=== PATIENT | female | born 1990 | race Caucasian/White ===

== ENCOUNTER → 2017-02-10 | Outpatient (CLI) | payer BC ==
[2017-02-10 15:49] LABS: URINE APPEARANCE CLEAR (CLEAR); URINE BILIRUBIN NEG (NEG); URINE COLOR YELLOW; URINE NITRITE NEG (NEG); URINE SPECIFIC GRAVITY 1.009 (1.000-1.030); UROBILINOGEN NEG (NEG)
[2017-02-10 15:54] LABS: BASO % 0.3 %; BASO ABS # 0.03 K/uL (0-0.2); COMPLETE YES; EOS % 1.6 %; HEMATOCRIT 35.8 % (37-47); IG% 0.3 %; LYMPH % 28.2 %; LYMPH ABS # 3.24 K/uL (1.2-3.4); MEAN CELL VOLUME 87.7 fL (80-100); MEAN CORPUSCULAR HEMOGLOBIN 31.1 pg (25-34); MEAN CORPUSCULAR HGB CONC 35.5 g/dl (32-36); MEAN PLATELET VOLUME 9.5 fL (7.4-10.4); MONO % 6.3 %; NEUT % 63.3 %; PLATELET COUNT 281 K/uL (130-400); RED BLOOD COUNT 4.08 M/uL (4.2-5.4)
[2017-02-10 15:57] LABS: MANUAL MICROSCOPIC REQUIRED? NO; REVIEW REQ? YES
[2017-02-10 16:06] LABS: URINE EPITHELIAL CELL AUTO >30 /lpf (0-5)
[2017-02-13 01:57] LABS: CHLAMYDIA TRACH RNA*** NOT DETECTED (NOT DETECTED); GC (NEIS GONORRHOEAE)RNA** NOT DETECTED (NOT DETECTED)
== END | disposition home or self-care (01) ==
LOC: C.LAB1850 14:52
PROVIDERS: ATTEND Obstetrics & Gynecology
DX: Z34.91 Encounter for supervision of normal pregnancy, unspecified, first trimester (principal)

== ENCOUNTER → 2017-05-28 | Outpatient (CLI) | payer BC ==
[2017-05-28 16:51] LABS: URINE APPEARANCE CLOUDY (CLEAR); URINE BILIRUBIN NEG (NEG); URINE COLOR YELLOW; URINE EPITHELIAL CELL AUTO >30 /lpf (0-5); URINE NITRITE NEG (NEG); URINE PH 7.5 (4.5-7.5); URINE SPECIFIC GRAVITY 1.021 (1.000-1.030); UROBILINOGEN NEG (NEG)
[2017-05-28 16:52] LABS: MANUAL MICROSCOPIC REQUIRED? NO; REVIEW REQ? NO
== END | disposition home or self-care (01) ==
LOC: C.LABSPEC 14:47
PROVIDERS: ATTEND Obstetrics & Gynecology
DX: Z34.83 Encounter for supervision of other normal pregnancy, third trimester (principal)

== ENCOUNTER → 2017-07-26 | Outpatient (CLI) | payer BC, OTHER | END | disposition home or self-care (01) | LOC: C.LABSPEC 12:45 | PROVIDERS: ATTEND Obstetrics & Gynecology | DX: Z34.83 Encounter for supervision of other normal pregnancy, third trimester (principal) ==

== ENCOUNTER 2017-08-24 21:13 | Inpatient (IN) | payer OTHER ==
[~2017-08-24] VITALS: Ht 162.6 cm; Wt 83.6 kg
[2017-08-24] MEDS ORDERED: OXYTOCIN 30 UNITS/500ML NSS IV ONE (21:20)
[2017-08-24] MEDS ORDERED: LACTATED RINGER'S 1000ML 1,000 ML IV PRN (21:33)
[2017-08-24] MEDS ORDERED: LACTATED RINGER'S 1000ML 1,000 ML IV SCH (21:33)
[2017-08-24] MEDS ORDERED: LANOLIN OINT EXT PRN (22:00)
[2017-08-24] MEDS ORDERED: OXYTOCIN 30 UNITS/500ML NSS IV PRN (22:00)
[2017-08-24] MEDS ORDERED: SUPERCREAM 0.870 % 15GM JAR EXT PRN (22:00)
[2017-08-24] MEDS ORDERED: METHYLERGONOVINE MALEATE 0.2 MG/ML AMP IM ONE (22:00)
[2017-08-24] MEDS ORDERED: BENZOCAINE 20% AER SPR 82.5 GM CAN EXT PRN (22:00)
[2017-08-24] MEDS ORDERED: HYDROCORTISONE ACETATE 25 MG SUPP PR PRN (22:00)
[2017-08-24] MEDS ORDERED: OXYCODONE/ACETAMINOPHEN 5-325 TAB PO PRN (22:00)
[2017-08-24] MEDS ORDERED: MISOPROSTOL 200 MCG TAB PR SCH (22:00)
[2017-08-24 22:06] LABS: HEMATOCRIT 35.2 % (37-47); HEMOGLOBIN 11.9 g/dL (12.0-16.0); MEAN CORPUSCULAR HEMOGLOBIN 28.1 pg (25-34); MEAN CORPUSCULAR HGB CONC 33.8 g/dl (32-36); MEAN PLATELET VOLUME 10.5 fL (7.4-10.4); PLATELET COUNT 245 K/uL (130-400); RED CELL DISTRIBUTION WIDTH CV 14.4 % (11.5-14.5); RED CELL DISTRIBUTION WIDTH SD 43.1 fL (36.4-46.3); WHITE BLOOD COUNT 18.52 K/uL (4.8-10.8)
[2017-08-24] MEDS ORDERED: IBUPROFEN 600 MG TAB ONE (22:11)
[2017-08-24] MEDS ORDERED: MISOPROSTOL 200 MCG TAB ONE (22:22)
--- NOTE | 2017-08-24 22:43 | HISTORY & PHYSICAL EXAMINATION ---
DATE OF ADMISSION: 08/24/2017 CHIEF COMPLAINT: Spontaneous labor. HISTORY OF PRESENT ILLNESS: The patient is a 27-year-old G2, P1-0-0-1, at 41 weeks and 0 days, who presented to labor and delivery from the Emergency Department with complaint of "The baby is coming." She was not able to provide much verbal information due to extreme discomfort; however, according to information collected from both her and the attending physiotherapy assistant [place], the patient had been seen at the office today where her cervix was checked and membranes were stripped per the patient and she began charissa at approximately 6:30 p.m. She messaged her physiotherapy assistant at 8:00 p.m. and arrived at labor and delivery unannounced at approximately 9:30 p.m., actively pushing. is complicated by post-dates. PAST MEDICAL HISTORY: Denies. PAST SURGICAL HISTORY: Clyman teeth and tonsils. PAST GYNECOLOGIC HISTORY: Colposcopy in 2012. MEDICATIONS: vitamins. ALLERGIES: PENICILLIN CAUSES RASH. SOCIAL HISTORY: Denies tobacco, alcohol and drug use. FAMILY HISTORY: Unremarkable. REVIEW OF SYSTEMS: Negative except as above. PHYSICAL EXAMINATION: VITAL SIGNS: Blood pressure on arrival was 162/78, heart rate 78; however, I believe this blood pressure was falsely elevated due to active pushing, subsequent blood pressures were in the normal range 115/81, 126/83 and 122/81. Vitals otherwise normal. GENERAL IMPRESSION: Awake, alert and oriented x3, in significant discomfort. ABDOMEN: Gravid and actively charissa. EXTREMITIES: No edema, no calf tenderness. CERVIX: Completely dilated, +3 station, actively pushing with bulging membranes. heart monitor unable to trace baby; however, the small amount of heart tones that we were able to obtain showed heart rate in the 80s upon arrival. LABORATORY DATA: Blood type O positive, rubella immune, group B strep negative. ASSESSMENT: A 27-year-old G2, P1-0-0-1, at 41 weeks 0 days, spontaneous labor. PLAN: Spontaneous vaginal delivery was performed upon arrival. Labs will be collected after delivery. Please see delivery summary for further details of the delivery.
[2017-08-24] MEDS ORDERED: PRENTAB26 PO (22:44)
[2017-08-24 22:46] VITALS: Ht 162.6 cm; Wt 83.6 kg
[2017-08-25] MEDS ORDERED: OXYTOCIN INJ 10 UNITS/ML VIAL IM ONE (00:30)
[2017-08-25 01:30] VITALS: BP 114/76; PULSE 78; TEMP 37.4; O2SAT 97
[2017-08-25 03:10] VITALS: BP 118/81; PULSE 74; TEMP 36.5; O2SAT 97
[2017-08-25] MEDS: IBUPROFEN 600 MG TAB PO PRN ×6 (03:30→22:34)
--- NOTE | 2017-08-25 05:25 | DELIVERY SUMMARY ---
DATE OF OPERATION: 08/24/2017 PREDELIVERY DIAGNOSES: 1. A 27-year-old G2, P1-0-0-1 at 41 weeks 0 days. 2. Spontaneous labor. POSTDELIVERY DIAGNOSES: Same. PROCEDURE: Spontaneous vaginal delivery and repair of second-degree perineal laceration. FINDINGS: Viable female with Apgars 7 and 9, weight pending. Please see nursery records. ESTIMATED BLOOD LOSS: 300 mL. DESCRIPTION OF DELIVERY: The patient arrived in spontaneous labor and was actively pushing upon entering the door of the labor and delivery. She had bulging membrane. Upon getting patient setup in a labor and delivery bed, the membranes were ruptured with Amniohook for clear fluid. The patient then pushed to deliver the head. No nuchal cord was noted. The anterior followed by the posterior shoulder were delivered followed by the body. Baby was placed on mother's abdomen. The cord was doubly clamped and cut. A cord segment was retained for cord gases. Cord blood was obtained. The placenta was then delivered spontaneously intact with a 3-vessel cord. Due to the patient's precipitous delivery, an IV was not able to be started prior to delivery and therefore 10 units of Pitocin IM were injected. The uterus became firm, however, there was still some uterine bleeding and therefore because we still did not have IV access, 1000 mcg of Cytotec were used per rectum to obtain hemostasis. Uterus and vagina were cleared off all clots and debris. The cervix, vagina and perineum were inspected and a second degree perineal laceration was noted. Lidocaine was used to numb the area and this laceration was repaired in standard fashion with 3-0 Vicryl in a running locked stitch. Excellent hemostasis was observed. The patient tolerated the delivery well and mother and baby were recovering in the room in stable and good condition. At the conclusion of the delivery, sponge, instrument and needles counts were correct x2. Prior to the patient beginning to push and due to precipitous nature of delivery, we were unable to trace the rate in a heart tracing strip. We were able to berry picker the heart rate in the 80s. It is unknown how long the baby's heart rate was in the 80s because she delivered within a few minutes of arriving in the labor and delivery unit. I attest to the content of the Intraoperative Record and any orders documented therein. Any exception s are noted below.
[2017-08-25 06:24] LABS: HEMOGLOBIN 10.9 g/dL (12.0-16.0)
[2017-08-25] MEDS: DOCUSATE SODIUM 100 MG CAP PO SCH ×2 (08:00→19:48)
[2017-08-25 09:00] VITALS: BP 117/76; PULSE 77; TEMP 36.8
--- NOTE | 2017-08-25 11:12 | OB/GYN Progress Note ---
[facility] Progress Note Date of Service Aug 25, 2017. Subjective conversation w/ patient, physical exam Ambulation: ambulating normally Voiding: no voiding problems Passing Gas: Yes Diet Tolerance: Regular Diet Lochia: Moderate Feeding Type: Breast Feeding Pain: controlled Review of Systems Constitutional: No problem reported Respiratory: No problem reported Cardiac: No problem reported Breast: No problem reported Abdomen: No problem reported Female : No problem reported Objective Vital Signs Date Time Temp Pulse Resp B/P (MAP) Pulse Ox O2 Delivery O2 Flow Rate FiO2 08/25/17 03:10 36.5 74 16 118/81 (93) 97 Room Air 08/25/17 01:30 37.4 78 18 114/76 (89) 97 Room Air 08/25/17 01:30 97 Room Air Physical Exam General Appearance: WELL-APPEARING, NO APPARENT DISTRESS Respiratory/Chest: no respiratory distress Cardiovascular: regular rate, rhythm Abdomen: non tender, soft Fundus: Firm Extremities: normal inspection Laboratory Results Last 24 Hours Test 08/24/17 21:53 08/25/17 05:45 White Blood Count 18.52 K/uL Red Blood Count 4.24 M/uL Hemoglobin 11.9 g/dL 10.9 g/dL Hematocrit 35.2 % 32.0 % Mean Corpuscular Volume 83.0 fL Mean Corpuscular Hemoglobin 28.1 pg Mean Corpuscular Hemoglobin Concent 33.8 g/dl RDW Standard Deviation 43.1 fL RDW Coefficient of Variation 14.4 % Platelet Count 245 K/uL Mean Platelet Volume 10.5 fL Assessment and Plan Post- Day Number: 1 Continue Routine Care: Doing well . Anticipate discharge home tomorrow.
[2017-08-25 12:15] VITALS: BP 112/76; PULSE 70; TEMP 36.5
[2017-08-25 16:20] VITALS: BP 113/73; PULSE 70; TEMP 36.8; O2SAT 98
[2017-08-25] MEDS ORDERED: BISACODYL 5 MG TABEC PO SCH (20:00)
[2017-08-25 20:30] VITALS: BP 124/78; PULSE 81; TEMP 37; O2SAT 97
--- NOTE | 2017-08-25 22:00 | Discharge Instructions ---
Discharge Instructions Date of Service Aug 25, 2017. Admission Reason for Admission: Delivery Discharge Discharge Diagnosis / Problem: after delivery Discharge Goals Goal(s): Routine recovery after delivery Medications Continue Dispensed Medications: supercream, dermaplast, tucks, lansinoh Activity Recommendations Activity Limitations: as noted below ACTIVITY RECOMMENDATIONS: * Gradual return to full activity over the next 2-3 weeks. * No lifting - nothing heavier than baby over the next 2-3 weeks. * Do not engage in vigorous exercise, sexual activity or sports until cleared by your physician. * Do not drive or operate any motorized equipment until cleared by your physician. * You may shower/bathe daily. MEDICATIONS: For discomfort or pain, you may use Acetaminophen (Tylenol), Ibuprofen (Advil), or Naproxen (Aleve) following the package directions. For constipation you may use Colace following the package directions. BREAST CARE: If you are not breast feeding: * Wear a supportive bra 24 hours a day for one to two weeks. * Avoid stimulating your breasts and nipples as much as possible during the first few weeks after delivery. * When taking a shower, have the warm water hit your back, not breasts. * When your breasts feel full, apply ice packs. Usually three to four times a day helps ease the discomfort. * Take a mild pain medication (Tylenol / Motrin) when you are uncomfortable. If breast feeding: * Use breast milk to lubricate nipples. Lansinoh cream may be used for sore nipples. You do not need to remove cream prior to breast feeding. If using a different brand of cream, check the label for directions regarding removal of cream prior to nursing. * Wear a supportive bra. * If having problems with breasts or breast feeding, call a learning consultant or your health care provider. EPISIOTOMY CARE: After delivery, if you have an episiotomy (stitches), the following steps will ease discomfort and aid healing. * For the first 24 hours after delivery, place ice packs next to your episiotomy to help reduce swelling. * After the first 24 hour-period, sitz baths, either portable or in the tub, are suggested. A shower with a shower arm sprayed over the episiotomy may be comforting. * Rachel care should be done after each voiding and bowel movement. Squirt warm water from a plastic bottle over the perineum (region of the body between the anus and urinary opening) and pat dry. * Use Dermoplast to ease discomfort. Shake container. Ponce directly over the episiotomy. Place a Tucks on a clean sanitary pad next to your episiotomy. SPECIAL CARE INSTRUCTIONS: When you are discharged from the hospital, it is important for you to follow the instructions listed below: * During the first week at home, you should be able to care for yourself and your baby. In addition, the usual light household activities are encouraged. * Limit your activities to the way you feel. Do not try to clean the house or move furniture. Be sensible. * If you actively engage in sports and have done so up until the time of your delivery, you may resume these activities as soon as you feel able. This may take up to one month or even longer. Use good judgment. * Continue to take your vitamins for at least six weeks after the of your baby. * Your diet need not be limited unless you were on a special diet before your delivery. Breast-feeding mothers need around 2500 calories per day and at least 64-80 ounces of fluid per day (8 to 10 glasses). * You should eat foods from the four major food groups. Crash diets or fad diets are to be avoided. Eating lean meats, fresh fruits and vegetables, low-fat dairy products, high fiber foods and a regular exercise program, will help you get back to your pre- weight without putting your health at risk. * Constipation is sometimes a problem after delivery. Take a mild laxative as needed. If breast feeding, Milk of Magnesia is acceptable to use. You may use a suppository or Fleets enema if no episiotomy. * A daily shower or tub bath is suggested. Be sure to thoroughly and gently dry the perineum. * A bloody vaginal discharge will usually continue until around four weeks post . A small amount of bleeding may continue for as long as six weeks. Vaginal discharge changes from the bright red bleeding after delivery to pink then brownish and finally yellowish-pink before becoming white and disappearing. * Bleeding may increase with activity. Your first period may come in 4-8 weeks. If you are breast feeding, your period may be delayed even longer. * [place] (sex) can begin whenever both you and your partner feel comfortable and do not have any form of genital infection. It is recommended that you wait at least six weeks for internal and external healing to occur. If you have questions, please talk to your health care practitioner. A condom should be used to prevent infection and . * Foreplay, gentle intercourse and lubrication is very important the first several times to prevent pain. A water-based lubricant such as K-Y jelly or Astroglide may be used. * If you have RH negative blood and your baby is RH positive, you will receive RHOGAM by injection prior to discharge. The nurse will give you a card to keep with you that has the date and place that you received RHOGAM after delivery. * During your care, you had a Rubella screen done to check for the presence of rubella antibodies in your blood. If your test was negative, you will receive a Rubella vaccine prior to discharge. This vaccine may cause a fever, soreness at the injection site and flu-like symptoms. If these symptoms persist, notify your health care practitioner. is not advised for one month after a Rubella vaccine. * Verbalizes understanding of car seat law as reviewed with patient nursing. * Car Seat hand-out given and reviewed with patient by nursing. * Shaken baby information reviewed with patient by nursing. Call you doctor if: * Heavy bleeding (saturating several pads an hour) or passing clots the size of your fist. * A fever >101 degrees F (38.3 degrees C) on two occasions four hours apart and /or chills. * Unusual pain in the pelvic or vaginal areas. * "Baby Blues" lasting longer than two weeks. If you have any questions or concerns, call your health care practitioner at . FOLLOW UP VISIT: * Please call the office at to schedule a 6 week examination. It is important you keep this appointment. It is important for you to make arrangements for either yearly or twice yearly check-ups thereafter. . Current Hospital Diet Patient's current hospital diet: Regular OB Diet Discharge Diet Recommended Diet: Regular Diet Pending Studies Studies pending at discharge: no Medical Emergencies . Who to Call and When: Medical Emergencies: If at any time you feel your situation is an emergency, please call 911 immediately. . Non-Emergent Contact Non-Emergency issues call your: Shank Boner . . "Provider Documentation" section prepared by Meena Knapp. .
[2017-08-26 00:40] VITALS: BP 117/72; PULSE 63; TEMP 36.9; O2SAT 96
[2017-08-26] MEDS: IBUPROFEN 600 MG TAB PO PRN (06:12)
--- NOTE | 2017-08-26 07:59 | Progress Note ---
Subjective Aug 26, 2017. Subjective conversation w/ patient, physical exam Ambulation: ambulating normally Voiding: no voiding problems Diet Tolerance: Regular Diet Lochia: Small Feeding Type: Breast Feeding Pain: no pain issues Objective Vital Signs Date Time Temp Pulse Resp B/P (MAP) Pulse Ox O2 Delivery O2 Flow Rate FiO2 08/26/17 00:40 36.9 63 16 117/72 (87) 96 Room Air 08/26/17 00:40 96 Room Air 08/25/17 20:30 37.0 81 18 124/78 (93) 97 Room Air 08/25/17 16:20 36.8 70 16 113/73 (86) 98 Room Air 08/25/17 16:20 98 Room Air 08/25/17 12:15 36.5 70 16 112/76 (88) Room Air 08/25/17 09:00 Room Air 08/25/17 09:00 36.8 77 16 117/76 (90) Room Air Physical Exam General Appearance: WELL-APPEARING, WD/WN, NO APPARENT DISTRESS Respiratory/Chest: lungs clear Cardiovascular: regular rate, rhythm Abdomen: non tender, soft Fundus: Firm, Relation to Umbilicus (2 down) Extremities: non-tender Assessment and Plan Post- Day#: 2 Continue Routine Care: stable, d/c home, f/u 6 wks pp. instructions reviewed.
[2017-08-26] MEDS: DOCUSATE SODIUM 100 MG CAP PO SCH (08:00)
[2017-08-26 08:15] VITALS: BP 118/82; PULSE 73; TEMP 36.7
[2017-08-26 09:50] VITALS: BP_DIAS 82; PULSE 73; TEMP 36.7
== END 2017-08-26 09:50 | disposition home or self-care (01) | DRG 775 ==
LOC: C.LD 21:13 → C.OBG 08-25 01:27
PROVIDERS: ADMIT Obstetrics & Gynecology; ATTEND Obstetrics & Gynecology
PROC: 10E0XZZ Delivery of Products of Conception, External Approach (ICD-10-PCS; principal; 2017-08-24)
PROC: 0KQM0ZZ Repair Perineum Muscle, Open Approach (ICD-10-PCS; principal; 2017-08-24)
DX: O62.3 Precipitate labor (principal); O48.0 Post-term pregnancy; O70.1 Second degree perineal laceration during delivery; Z3A.41 41 weeks gestation of pregnancy; Z37.0 Single live birth; Z88.0 Allergy status to penicillin

== ENCOUNTER → 2017-10-07 | Outpatient (CLI) | payer OTHER ==
[~2017-10-07] MED LIST: PRENTAB26 PO
== END | disposition home or self-care (01) ==
LOC: C.PAPS 14:35
PROVIDERS: ATTEND Obstetrics & Gynecology
DX: Z39.2 Encounter for routine postpartum follow-up (principal)